=== PATIENT | female | born 1955 | race Caucasian/White ===

== ENCOUNTER 2017-09-01 08:25 | Inpatient (IN) ==
[2017-09-01] MEDS ORDERED: cefOXitin 2,000 MG in Water for inj. (sterile) 20 ML 10 ML IVP ONE (08:43)
[2017-09-01] MEDS ORDERED: Albuterol 2.5 MG/3 ML NEBULIZER IH ONE (08:43)
[2017-09-01] MEDS ORDERED: Plasma-Lyte A (PH 7.4) 1,000 ML IVC SCH (08:45)
[2017-09-01] MEDS ORDERED: Lidocaine -MPF 4% 5 ML AMPUL ONE (08:52)
[2017-09-01] MEDS ORDERED: *HR* Rocuronium Bromide 50 MG/5 ML VIAL ONE ×2 (08:52→11:08)
[2017-09-01] MEDS ORDERED: *HR* FentaNYL (PF) 100 MCG/2 ML VIAL ONE (08:52)
[2017-09-01] MEDS ORDERED: Dexamethasone 4 MG/ML VIAL ONE (08:52)
[2017-09-01] MEDS ORDERED: *HR* Propofol 200 MG/20 ML VIAL IVP ONE (08:52)
[2017-09-01] MEDS ORDERED: Lidocaine -MPF 2% 2 ML VIAL ONE (08:52)
[2017-09-01] MEDS ORDERED: Ondansetron 4 MG/2 ML VIAL ONE (08:52)
[2017-09-01] MEDS ORDERED: *HR* Succinylcholine 200 MG/10 ML VIAL IVP ONE (08:53)
--- NOTE | 2017-09-01 08:54 | Anesthesia Evaluation PreOp ---
Date of Encounter: 09/01/17 Time of Encounter: 08:50 - Past History Planned Operation: lap kimani Cardiac History: HTN, Hyperlipidemia, Arrhythmia (occ. 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 etiology) Other Medical History: GERD Anesthesia History: No Prior Anesthetic Complications, Past Anesthesia Alcohol Use: none Drug use: none Medications and Allergies Amitriptyline [Elavil] 25 mg PO HS 09/01/17 [History] Aspirin 325 mg PO DAILY 09/01/17 [History] Atorvastatin [Lipitor] 40 mg PO HS 09/01/17 [History] Calcium Carbonate/Vitamin D3 [Oyster Shell Calcium-Vit D Tab] 1 tab PO BID 09/01 [History] Cyclobenzaprine [Flexeril] 10 mg PO BID 09/01/17 [History] Ergocalciferol (VITAMIN D2) [Vitamin D2] 50,000 unit PO WE 09/01/17 [History] Isosorbide MONOnitrate (24 HR) [Imdur] 30 mg PO DAILY 09/01/17 [History] Lansoprazole [Prevacid] 30 mg PO DAILY 09/01/17 [History] Quetiapine Fumarate [Seroquel] 200 mg PO HS 09/01/17 [History] Tiotropium [Spiriva] 18 mcg IH 0700 09/01/17 [History] Venlafaxine HCl [Venlafaxine HCl ER] 150 mg PO DAILY 09/01/17 [History] clonazePAM [Klonopin] 1 mg PO BID 09/01/17 [History] 3 Allergy/AdvReac Type Severity Reaction Status Date / Time No Known Allergies Allergy Verified 09/01/17 08:44 - Meds/Allergy Pre-op Review Medications Reviewed: Yes Allergies Reviewed: Yes Beta Blockers on Current Med List: No Anesthesia Results - Imaging EKG: report reviewed (sinus rhythm, LAE) Anesthesia Exam Selected Entries 09/01/17 08:42 Temperature 97.8 F Pulse Rate 93 Respiratory Rate 18 Blood Pressure 160/71 O2 Sat by Pulse Oximetry 95 Weight: 100 kg. NPO (# of Hours): over 8 hours - HEENT Pupil (Motor): Pupils equal Mallampati: II Teeth: Poor dentition (No upper teeth, lowers in poor condition, multiple missing) Denture Type: Upper: Complete Oral Opening: Greater than 3 - DECATING MACHINE OPERATOR LOC: Oriented DECATING MACHINE OPERATOR Motor: Deficit RUE (extensive intention tremor), Deficit LUE, Deficit RLE, Deficit LLE, Deficit Face - Cardiac Rhythm: Regular Murmur: None - Pulmonary Breath Sounds: bilateral Clear Respiratory Effort: Symmetrical Anesthesia Assess/Plan Anesthetic Plan: General Monitoring Plan: Standard Monitors Recovery Plan: PACU (Discussed GA, risks. Agreed to proceed.)
[2017-09-01] MEDS ORDERED: Acetaminophen IV 1,000 MG/100 ML INFUS..BTL IVPB ONE (08:57)
[2017-09-01] MEDS ORDERED: cefOXitin 1,000 MG, 0.9 % Sodium Chloride 1,000 ML IR ONE (09:30)
--- NOTE | 2017-09-01 09:38 | History & Physical Report ---
Date of Encounter: 09/01/17 Time of Encounter: 09:30 24 Hour HP Update - Instructions Instructions: If the History and Physical is less than 30 days old and was completed prior to A.M. admission and or procedure and has NOT been updated on calendar day of procedure please complete this update prior to performing procedure. - Update Patient reports changes in Medical Condition: No Changes in examination, assessment, or condition: No Changes in Medication: No Preop tests/diagnostics Reviewed: Yes Surgery Remains Indicated: Yes Consent for Planned Operative Procedure(s) Verified: Yes - Pre-Operative Checklist Preoperative Checklist Indicated: Yes Prophylactic Antibiotic Ordered: Yes Home Medications Include Beta Jasvir: Yes Beta Jasvir Taken Today (Day of Surgery): Yes Beta Jasvir Taken Yesterday (Day Prior to Surgery): Yes Is VTE Prophylaxis Indicated?: Yes
[2017-09-01] MEDS ORDERED: Isovue-300 50 ML VIAL IVP ONE (09:41)
[2017-09-01] MEDS ORDERED: *HR* Promethazine 25 MG/ML VIAL IVP PRN (09:55)
[2017-09-01] MEDS ORDERED: *HR* HYDROmorphone 2 MG TABLET PO PRN (09:55)
[2017-09-01] MEDS ORDERED: MORPHINE SUL Oral CONC 10 MG/0.5 ML ORAL.SYG SL PRN (09:55)
[2017-09-01] MEDS ORDERED: Ondansetron 4 MG/2 ML VIAL IVP ONE (09:55)
[2017-09-01] MEDS ORDERED: CefOXitin 2,000 MG VIAL ONE (10:44)
[2017-09-01] MEDS ORDERED: Neostigmine Methylsulfate 3 MG/3 ML SYRINGE ONE ×2 (11:33→11:34)
--- NOTE | 2017-09-01 11:50 | Operative Note ---
Date of procedure: 09/01/17 Pre-op diagnosis: Cholelithiasis and biliary colic. Post-op diagnosis: same (Cholelithiasis and biliary colic. Extensive intra- abdominal adhesions. Incisional hernias.) Procedure: #1 attempted laparoscopic cholecystectomy, conversion to open cholecystectomy. #2 lysis of adhesions times 30 minutes. #3 repair of incisional hernias Anesthesia: ALANNAH Surgeon: Anthony Chowdary Was there an certified first assistant present: No Estimated blood loss (cc): 25 Specimen: #1 gallbladder and contents. #2 incisional hernia sac Condition: stable Disposition: PACU Procedure in Detail: After informed consent the patient is taken to the major operating suite placed in the supine position and given adequate general anesthetic. The abdomen was prepped and draped in sterile fashion utilizing ChloraPrep standard draping techniques. Timeout was taken and the patient was identified. I made a vertical midline incision below the umbilicus and visually enter the abdomin. A Wetzel trocar was placed . I insufflated to 15 mmHg pressure CO2. There are extensive small bowel adhesions to the midline and right upper quadrant. There were extensive colon adhesions to the inferior border of the liver. The small bowel appeared to be involved in midline incisional hernias. I was unable to reduce this visually. I did not think that I could proceed safely laparoscopically. Decision was made to convert to open. I opened the previous midline incision. I spent 30 minutes dividing adhesions to incisional hernias in the anterior abdominal wall as well as the inferior border of the liver. Once all the adhesions were divided he was noted that there were no areas of bowel injury or enterotomy. Bookwalter retractor was placed. A variety of blunt and sharp dissection techniques were used to isolate the neck of gallbladder. I placed 2 surgical clips proximally and one surgical clip distally on the cystic artery but it was not divided. I placed a surgical clip on the neck gallbladder. I obtained a cholangiogram. Cholangiogram demonstrated good flow although there was apparent anatomy noted at the bifurcation. This did not affect the dissection. I secured the cystic duct with 2 surgical clips proximally. Cystic duct was divided. Cystic artery was divided. The gallbladder was removed from the gallbladder fossa using electrocautery. Hemostasis was excellent. I irrigated with copious amounts of antibiotic containing solution. Bookwalter retractor was removed. I removed the incisional hernia sacs from the subcutaneous tissue. I dissected the fascia over the entire length of the incision. I performed a primary closure of the fascia with interrupted 0 Nurolon. 14 stitches were used. Skin was closed with interrupted 2-0 Vicryl and the skin with skin clips. I did inject 20 mL of Marcaine in the fascia and skin prior to closure
[2017-09-01] MEDS ORDERED: Albuterol 2.5 MG/3 ML NEBULIZER ONE (12:02)
[2017-09-01] MEDS ORDERED: Albuterol 2.5 MG/3 ML NEBULIZER IH SCH (12:15)
[2017-09-01] MEDS ORDERED: *HR* Metoprolol 5 MG/5 ML VIAL IVP PRN (13:00)
[2017-09-01] MEDS ORDERED: Ondansetron 4 MG/2 ML VIAL IVP PRN (13:00)
[2017-09-01] MEDS: *HR* OxyCODONE/APAP 5/325 TABLET PO PRN ×2 (13:38→22:02)
[2017-09-01] MEDS: 0.9 % Sodium Chloride 1,000 ML IVC SCH (13:41)
[2017-09-01] MEDS ORDERED: Venlafaxine XR (24 HR) 150 MG CAP.ER.24H PO ONE (15:13)
[2017-09-01] MEDS ORDERED: clonazePAM 1 MG TABLET PO ONE (15:15)
[2017-09-01] MEDS: Clindamycin 900 MG/50 ML 900 MG/50 ML IV.SOLN IVPB SCH (16:08)
[2017-09-01] MEDS: *HR* Heparin 5,000 UNIT/ML VIAL SQ SCH (19:02)
[2017-09-01] MEDS: clonazePAM 1 MG TABLET PO SCH (21:49)
[2017-09-02] MEDS: Clindamycin 900 MG/50 ML 900 MG/50 ML IV.SOLN IVPB SCH (02:25)
[2017-09-02] MEDS: 0.9 % Sodium Chloride 1,000 ML IVC SCH ×2 (02:28→14:35)
[2017-09-02] MEDS: *HR* Heparin 5,000 UNIT/ML VIAL SQ SCH ×2 (06:06→18:24)
[2017-09-02 07:29] LABS: Basophils % 0.1 %; Hemoglobin 11.7 g/dL (11.5-15.4); Immature Granulocytes % 0.5 % (0-4); Lymphocytes # 1.1 K/mcL (0.6-4.6); Lymphocytes % 11.9 %; Mean Corpuscular HGB Conc 30.8 g/dL (31.6-35.5); Mean Corpuscular Hemoglobin 25.3 pg (28.0-33.3); Mean Corpuscular Volume 82.1 fL (83.0-100.0); Mean Platelet Volume 9.4 fL (9.4-12.4); Monocytes # 0.6 K/mcL (0.0-1.3); Monocytes % 6.8 %; Neutrophils # 7.1 K/mcL (1.6-8.9); Platelet Count 216 K/mcL (140-400); Red Blood Count 4.63 M/mcL (3.82-4.97); Red Cell Distribution Width 14.3 % (11.5-14.5); Segmented Neutrophils % 80.7 %
[2017-09-02 08:07] LABS: BUN/Creatinine Ratio 10 (6-26); Blood Urea Nitrogen 5 mg/dL (8-23); Calcium 9.2 mg/dL (8.6-10.3); Carbon Dioxide 29 mEq/L (23-29); Chloride 106 mEq/L (98-107); Glucose 116 mg/dL (70-105); Osmolality,Calculated 290 (280-300); Sodium 141 mEq/L (136-145); eGFR For African Americans > 60 (> 60); eGFR For Non-African Americans > 60 (> 60)
[2017-09-02] MEDS ORDERED: Venlafaxine XR (24 HR) 150 MG CAP.ER.24H PO SCH (09:00)
[2017-09-02] MEDS: clonazePAM 1 MG TABLET PO SCH ×2 (09:44→21:08)
[2017-09-02] MEDS: Aspirin 325 MG TABLET PO SCH (09:44)
[2017-09-02] MEDS: Pantoprazole 40 MG VIAL IVP SCH (09:45)
[2017-09-02] MEDS: Metoprolol XL (24 HR) Succ 50 MG TAB.ER.24H PO SCH (09:45)
[2017-09-02] MEDS: Isosorbide MONOnitrate (24 HR) 30 MG TAB.ER.24H PO SCH (09:45)
[2017-09-02] MEDS: OXYCODONE Oral CONC 10 MG/0.5 ML ORAL.SYG SL PRN ×2 (11:14→18:42)
--- NOTE | 2017-09-02 11:39 | General Surgery Progress Note ---
<Deidre Longoria Zari - Last Filed: 09/02/17 11:37> Date of Encounter: 09/02/17 Time of Encounter: 11:30 - Assessment and Plan (1) Cholelithiasis Status: Chronic POD #1 attempted laparoscopic cholecystectomy, conversion to open cholecystectomy; lysis of adhesions times 30 minutes; repair of incisional hernias with Dr. Chowdary XR/XR cholangiogram operative IMPRESSION: Unremarkable intraoperative cholangiogram. Advance to full liquid diet Decrease IV fluids to 60ml/hour Supportive care and pain control The incision care Apply abdominal binder GI prophylaxis Incentive spirometer every 1 hour while awake Add duonebs every 6 hours for active wheezing Ambulate hallways 3 times a day with assistance Qualifiers: Cholelithiasis location: gallbladder Cholecystitis presence: without cholecystitis Biliary obstruction: without biliary obstruction Qualified Code(s): K80.20 - Calculus of gallbladder without cholecystitis without obstruction (2) Biliary dyskinesia Status: Chronic POD #1 attempted laparoscopic cholecystectomy, conversion to open cholecystectomy; lysis of adhesions times 30 minutes; repair of incisional hernias with Dr. Chowdary Advance to full liquid diet Decrease IV fluids to 60ml/hour Supportive care and pain control The incision care Apply abdominal binder GI prophylaxis Incentive spirometer every 1 hour while awake Add duonebs every 6 hours for active wheezing Ambulate hallways 3 times a day with assistance (3) Incisional hernia Status: Chronic POD #1 attempted laparoscopic cholecystectomy, conversion to open cholecystectomy; lysis of adhesions times 30 minutes; repair of incisional hernias with Dr. Chowdary Advance to full liquid diet Decrease IV fluids to 60ml/hour Supportive care and pain control The incision care Apply abdominal binder GI prophylaxis Incentive spirometer every 1 hour while awake Add duonebs every 6 hours for active wheezing Ambulate hallways 3 times a day with assistance Qualifiers: Obstruction and gangrene presence: without obstruction or gangrene Qualified Code(s): K43.2 - Incisional hernia without obstruction or gangrene; K43.91 - Incisional hernia, without obstruction or gangrene (4) Intra-abdominal adhesions Status: Acute POD #1 attempted laparoscopic cholecystectomy, conversion to open cholecystectomy; lysis of adhesions times 30 minutes; repair of incisional hernias with Dr. Chowdary Advance to full liquid diet Decrease IV fluids to 60ml/hour Supportive care and pain control The incision care Apply abdominal binder GI prophylaxis Incentive spirometer every 1 hour while awake Add duonebs every 6 hours for active wheezing Ambulate hallways 3 times a day with assistance (5) Obesity (BMI 30.0-34.9) Status: Chronic (6) GERD (gastroesophageal reflux disease) Status: Chronic GI prophylaxis daily Qualifiers: Esophagitis presence: esophagitis presence not specified Qualified Code(s) : K21.9 - Gastro-esophageal reflux disease without esophagitis (7) DVT prophylaxis Status: Acute Heparin 5000 units subcutaneous twice daily for DVT prophylaxis EPCDs to bilateral lower shorties for DVT prophylaxis Ambulate hallways 3 times a day with assistance Subjective Patient reports: no new complaints, still having pain (post-operative pain), tolerating liquids well, voiding w/o difficulty, no flatus, no bowel movement, afebrile Objective Vital Signs - Last 8 Hours Temp Pulse Resp BP Pulse Ox 09/02/17 07:47 97.2 F L 78 16 106/67 97 Intake and Output 09/01/17 09/02/17 09/02/17 23:59 07:59 15:59 Intake Total 650 / 650 1120 / 1120 Output Total 2650 / 2650 900 / 900 Balance -1999 / -1999 220 / 220 Intake: IV Fluids 50 / 50 1000 / 1000 0.9 % Sodium Chloride 1,000 ML 1000 / 1000 @ 75 mls/hr IVC .[id number] [facility] Rx #:[id number] Cleocin Premix 900 MG/50 ML 900 50 / 50 mg In 50 ml @ 50 mls/hr IVPB Q8HR [facility] Rx#:[id number] Oral 600 / 600 120 / 120 Output: Urine 2650 / 2650 900 / 900 Other: Meal Dinner Percent of Meal Consumed 100% Weight 100.199 kg Patient Weight 09/02/17 23:59 Weight 100.199 kg - General physical appearance well developed, well nourished, no distress, moderate pain - Eyes normal ocular movement - ENT normal mucosa, atraumatic, normocephalic - Neck Neck exam: trachea midline - Respiratory normal respiratory effort wheezing: bilateral - Cardiovascular Cardiovascular exam: Present: RRR - Abdomen Abdomen: Present: bowel sounds present (hypoactive), soft, tender (Expected postoperative tenderness) - Incision Incision: Present: clean and dry, intact - Integumentary no rash, no growths, no abnormal pigmentation - Neurologic CN 2-12 grossly intact - Psychiatric oriented to time, oriented to person, oriented to place, speech is normal, memory intact - Labs 09/02/17 05:44 09/02/17 05:44 Diabetes panel 09/02/17 Range/Units 05:44 Sodium 141 (136-145) mEq/L Potassium 4.0 (3.5-5.1) mEq/L Chloride 106 (98-107) mEq/L Carbon Dioxide 29 (23-29) mEq/L BUN 5 L (8-23) mg/dL Creatinine 0.48 L (0.60-1.20) mg/dL Glucose 116 H (70-105) mg/dL Calcium 9.2 (8.6-10.3) mg/dL Calcium panel 09/02/17 Range/Units 05:44 Calcium 9.2 (8.6-10.3) mg/dL Pituitary panel 09/02/17 Range/Units 05:44 Sodium 141 (136-145) mEq/L Potassium 4.0 (3.5-5.1) mEq/L Chloride 106 (98-107) mEq/L Carbon Dioxide 29 (23-29) mEq/L BUN 5 L (8-23) mg/dL Creatinine 0.48 L (0.60-1.20) mg/dL Glucose 116 H (70-105) mg/dL Calcium 9.2 (8.6-10.3) mg/dL Adrenal panel 09/02/17 Range/Units 05:44 Sodium 141 (136-145) mEq/L Potassium 4.0 (3.5-5.1) mEq/L Chloride 106 (98-107) mEq/L Carbon Dioxide 29 (23-29) mEq/L BUN 5 L (8-23) mg/dL Creatinine 0.48 L (0.60-1.20) mg/dL Glucose 116 H (70-105) mg/dL Calcium 9.2 (8.6-10.3) mg/dL - VTE Documentation of Mechanical Device: Intermittent pneumatic compression device Consult Discharge Plan - Plan Instructions: Oxycodone/Acetaminophen (By mouth), Laxative, Stool Softeners ( By mouth), Open Cholecystectomy (DC), Acute Wound Care (DC) Additional Instructions: Pain Narcotics are prescribed. 1-2 tabs every 6 hours. Please take with meals. DO NOT drive while taking narcotics. Activity As tolerated. However, I encourage you to limit heaving lifting and strenuous activity until evaluated in clinic. Diet As tolerated. Bowel Regimen As long as you are taking narcotics, please take the stool softner daily. Warnings If you experience significant redness around the incision or drainage from the incision that is purulent or malodorous, or you experience fevers, chills, or food intolerance (including nausea, vomiting, abdominal pain or distension), jaundice or yellow skin, eyes, tongue/cheek, or any symptoms you feel warrant evaluation, please call the office. If unable to reach the office, please go to nearest urgent care center or emergency department Referrals: Anthony Chowdary MD [Partnered Physician] - Mika Harris MD [Primary Care Provider] - Prescriptions: OxyCODONE/APAP 5/325 [Percocet 5/325 MG] 1 each PO Q6HR PRN 7 Days #28 tablet PRN Reason: Pain (1-5) Docusate [Colace] 100 mg PO BID PRN 10 Days #20 capsule PRN Reason: Constipation - Attending Attestation For this encounter, I have reviewed the AUTOMOTIVE PAINTER HELPER or PA documentation, treatment plan, and medical decision making; and I have had face to face time with this patient. <Anthony Chowdary - Last Filed: 09/05/17 08:52> Date of Encounter: 09/02/17 Objective - Labs 09/02/17 05:44 09/02/17 05:44 - Attending Attestation The patient is seen and evaluated on morning rounds. She is status post open cholecystectomy. Her pain control is excellent. She is tolerating diet. I am very pleased with her overall clinical course. We will continue to support her until her bowel function increases and then we can proceed with discharge. Anthony Chowdary MD FACS
[2017-09-02] MEDS: Ipratropium/Albuterol Neb 3 ML IH SCH ×3 (13:37→22:56)
[2017-09-02] MEDS: Venlafaxine XR (24 HR) 150 MG CAP.ER.24H PO SCH (14:44)
[2017-09-03] MEDS: OXYCODONE Oral CONC 10 MG/0.5 ML ORAL.SYG SL PRN (00:18)
[2017-09-03] MEDS: Ipratropium/Albuterol Neb 3 ML IH SCH ×4 (03:16→21:14)
[2017-09-03] MEDS: *HR* Heparin 5,000 UNIT/ML VIAL SQ SCH ×2 (06:42→16:34)
[2017-09-03] MEDS: 0.9 % Sodium Chloride 1,000 ML IVC SCH ×2 (06:49→21:08)
[2017-09-03] MEDS: Pantoprazole 40 MG VIAL IVP SCH (07:55)
[2017-09-03] MEDS: Metoprolol XL (24 HR) Succ 50 MG TAB.ER.24H PO SCH (07:55)
[2017-09-03] MEDS: Aspirin 325 MG TABLET PO SCH (07:55)
[2017-09-03] MEDS: Isosorbide MONOnitrate (24 HR) 30 MG TAB.ER.24H PO SCH (07:55)
[2017-09-03] MEDS: clonazePAM 1 MG TABLET PO SCH ×2 (07:56→21:06)
[2017-09-03] MEDS: *HR* OxyCODONE/APAP 5/325 TABLET PO PRN ×3 (08:10→22:39)
--- NOTE | 2017-09-03 12:49 | General Surgery Progress Note ---
Date of Encounter: 09/03/17 Time of Encounter: 12:47 - Assessment and Plan (1) Cholelithiasis Current Visit: Yes Status: Chronic POD#2 s/p lap conv to open cholecystectomy with primary repair of incisional hernia; tolerating FLD; no bowel function; patient wishes to stay with current diet activity as tolerated cont current pain regimen SLIV when tolerating adequate PO await return of bowel function; IS: 10 breaths an hr while awake abdominal binder as needed Qualifiers: Cholelithiasis location: gallbladder Cholecystitis presence: without cholecystitis Biliary obstruction: without biliary obstruction Qualified Code(s): K80.20 - Calculus of gallbladder without cholecystitis without obstruction (2) Incisional hernia Current Visit: Yes Status: Chronic Qualifiers: Obstruction and gangrene presence: without obstruction or gangrene Qualified Code(s): K43.2 - Incisional hernia without obstruction or gangrene; K43.91 - Incisional hernia, without obstruction or gangrene Subjective Patient reports: no new complaints, feels better, still having pain, pain is less, tolerating liquids well, no flatus, no bowel movement, afebrile Objective Vital Signs - Last 8 Hours Temp Pulse Resp BP Pulse Ox 09/03/17 11:23 97.9 F 75 16 93/48 95 09/03/17 07:59 98.1 F 96 16 119/71 91 Intake and Output 09/02/17 09/03/17 09/03/17 23:59 07:59 15:59 Intake Total 1000 / 1000 Output Total 1949 / 1950 400 / 400 Balance -1949 / -1949 600 / 600 Intake: IV Fluids 1000 / 1000 0.9 % Sodium Chloride 1,000 ML 1000 / 1000 @ 60 mls/hr IVC .[id number] [facility] Rx #:[id number] Output: Urine 1949 1950 400 / 400 Other: Meal Dinner Percent of Meal Consumed 100% Weight 100.561 kg Patient Weight 09/03/17 23:59 Weight 100.561 kg - General physical appearance well developed, no distress - Eyes other (no scleral icterus) - ENT normocephalic - Neck Neck exam: no lymphadectomy - Respiratory normal expansion, normal respiratory effort - Cardiovascular Cardiovascular exam: Present: RRR - Abdomen Abdomen: Present: soft, tender (appropriately tender), surgical scars - Incision Incision: Present: clean and dry, intact - Integumentary no rash - Psychiatric oriented to time, oriented to person, oriented to place - Labs 09/02/17 05:44 09/02/17 05:44 - VTE Documentation of Mechanical Device: Intermittent pneumatic compression device Consult Discharge Plan - Plan Referrals: Mika Harris MD [Primary Care Provider] -
[2017-09-03] MEDS: Venlafaxine XR (24 HR) 150 MG CAP.ER.24H PO SCH (16:34)
[2017-09-04] MEDS: Ipratropium/Albuterol Neb 3 ML IH SCH ×2 (03:18→07:29)
[2017-09-04] MEDS: *HR* Heparin 5,000 UNIT/ML VIAL SQ SCH (05:28)
[2017-09-04] MEDS: *HR* OxyCODONE/APAP 5/325 TABLET PO PRN (05:28)
[2017-09-04] MEDS: Metoprolol XL (24 HR) Succ 50 MG TAB.ER.24H PO SCH (11:45)
[2017-09-04] MEDS: Aspirin 325 MG TABLET PO SCH (11:45)
[2017-09-04] MEDS: clonazePAM 1 MG TABLET PO SCH (11:45)
[2017-09-04] MEDS: Isosorbide MONOnitrate (24 HR) 30 MG TAB.ER.24H PO SCH (11:45)
[2017-09-04] MEDS: Pantoprazole 40 MG VIAL IVP SCH (11:45)
[2017-09-04 11:49] VITALS: BP 102/49
--- NOTE | 2017-09-04 11:51 | General Surgery Progress Note ---
Date of Encounter: 09/04/17 Time of Encounter: 11:49 - Assessment and Plan (1) Cholelithiasis Current Visit: Yes Status: Chronic POD#3 s/p lap conv to open cholecystectomy with primary repair of incisional hernia; no bowel function; patient wishes to stay with current diet activity as tolerated cont current pain regimen d/c IVF IS: 10 breaths an hr while awake abdominal binder as needed patient will likely need another day for continued pain control and ensure she continues to tolerate diet Qualifiers: Cholelithiasis location: gallbladder Cholecystitis presence: without cholecystitis Biliary obstruction: without biliary obstruction Qualified Code(s): K80.20 - Calculus of gallbladder without cholecystitis without obstruction (2) Incisional hernia Current Visit: Yes Status: Chronic Qualifiers: Obstruction and gangrene presence: without obstruction or gangrene Qualified Code(s): K43.2 - Incisional hernia without obstruction or gangrene; K43.91 - Incisional hernia, without obstruction or gangrene Subjective Patient reports: no new complaints, feels better, still having pain, pain is less, tolerating a regular diet, afebrile Objective Vital Signs - Last 8 Hours Temp Pulse Resp BP Pulse Ox 09/04/17 11:47 98.5 F 87 16 102/49 96 09/04/17 06:57 98.3 F 85 16 111/57 97 09/04/17 03:54 97.6 F 94 19 160/72 93 Intake and Output 09/03/17 09/04/17 09/04/17 23:59 07:59 15:59 Intake Total 1940 / 1940 600 / 600 Output Total 1350 / 1350 750 / 750 Balance 590 / 590 -150 / -150 Intake: IV Fluids 950 / 950 0.9 % Sodium Chloride 1,000 ML 950 / 950 @ 60 mls/hr IVC .[id number] [facility] Rx #:[id number] Oral 990 / 990 600 / 600 Output: Urine 1350 / 1350 750 / 750 Other: Meal Dinner Percent of Meal Consumed 80% # Voids 2 1 - General physical appearance no distress - Respiratory normal expansion, normal respiratory effort - Cardiovascular Cardiovascular exam: Present: RRR - Abdomen Abdomen: Present: soft, tender (appropriately tender, but controlled) - Incision Incision: Present: clean and dry, intact - Neurologic CN 2-12 grossly intact - Labs 09/02/17 05:44 09/02/17 05:44 - VTE Documentation of Mechanical Device: Intermittent pneumatic compression device Consult Discharge Plan - Plan Referrals: Mika Harris MD [Primary Care Provider] -
--- NOTE | 2017-09-04 12:09 | Discharge Summary ---
Date of Encounter: 09/04/17 Time of Encounter: 12:06 - Discharge Diagnosis (1) Cholelithiasis Priority: Primary Status: Chronic Comments: s/p lap converted to open cholecystectomy with primary closure of ventral hernia ; tolerating diet; pain controlled; voiding on her own; having bowel function; patient is appropriate for discharge today; Originally the plan was to keep her another day, but she is having bowel function and feels her pain is adequately controlled; Qualifiers: Cholelithiasis location: gallbladder Cholecystitis presence: without cholecystitis Biliary obstruction: without biliary obstruction Qualified Code(s): K80.20 - Calculus of gallbladder without cholecystitis without obstruction (2) Incisional hernia Priority: Primary Status: Chronic Comments: see above Qualifiers: Obstruction and gangrene presence: without obstruction or gangrene Qualified Code(s): K43.2 - Incisional hernia without obstruction or gangrene; K43.91 - Incisional hernia, without obstruction or gangrene - Discharge Medications Prescriptions: OxyCODONE/APAP 5/325 [Percocet 5/325 MG] 1 each PO Q6HR PRN 7 Days #28 tablet PRN Reason: Pain (1-5) Docusate [Colace] 100 mg PO BID PRN 10 Days #20 capsule PRN Reason: Constipation Home Medications: Amitriptyline [Elavil] 25 mg PO HS 09/01/17 [History] Aspirin 325 mg PO DAILY 09/01/17 [History] Atorvastatin [Lipitor] 40 mg PO DAILY 09/01/17 [History] Calcium Carbonate/Vitamin D3 [Oyster Shell Calcium-Vit D Tab] 1 tab PO BID 09/01 [History] Cyclobenzaprine [Flexeril] 10 mg PO BID 09/01/17 [History] Ergocalciferol (VITAMIN D2) [Vitamin D2] 50,000 unit PO WE 09/01/17 [History] Isosorbide MONOnitrate (24 HR) [Imdur] 30 mg PO DAILY 09/01/17 [History] Lansoprazole [Prevacid] 30 mg PO DAILY 09/01/17 [History] Metoprolol Succinate [Toprol Xl] 50 mg PO DAILY 09/01/17 [History] Quetiapine Fumarate [Seroquel] 200 mg PO HS 09/01/17 [History] Tiotropium [Spiriva] 18 mcg IH 0700 09/01/17 [History] Venlafaxine HCl [Venlafaxine HCl ER] 150 mg PO DAILY 09/01/17 [History] clonazePAM [Klonopin] 1 mg PO BID 09/01/17 [History] Docusate [Colace] 100 mg PO BID PRN 10 Days #20 capsule 09/04/17 [Rx] OxyCODONE/APAP 5/325 [Percocet 5/325 MG] 1 each PO Q6HR PRN 7 Days #28 tablet [Rx] Allergies/Adverse Reactions: 3 Allergy/AdvReac Type Severity Reaction Status Date / Time No Known Allergies Allergy Verified 09/01/17 08:44 General Surgery Exam Initial Vital Signs Temp Pulse Resp BP Pulse Ox 97.8 F 93 18 160/71 95 09/01/17 08:42 09/01/17 08:42 09/01/17 08:42 09/01/17 08:42 09/01/17 08:42 - General physical appearance no distress - Respiratory normal expansion, normal respiratory effort - Cardiovascular Cardiovascular exam: Present: RRR - Abdomen Abdomen general surgery: Present: soft, tender (appropriately tender) - Integumentary Integumentary general surgery: Present: warm and dry - Neurologic Present: CN 2-12 grossly intact - Psychiatric Psychiatric general surgery: Present: A&Ox3 Date of admission: 09/01/17 16:12 Primary care physician: Mika Harris MD Consults: 09/02/17 17:20 Consult to Invasive Line Access Team [CONS] Routine Reason for Consult: Limited access Line Type: EPIV Discharging clinician: Duncan Colbert Anticipated date of discharge: 09/04/17 - Patient Status Disposition: Home, Self-Care Condition: Good Functional capacity at discharge: independent ambulation Overall status at discharge: patient is progressing back to baseline - Discharge Instructions Follow Up With: Miak Harris MD [Primary Care Provider] - Anthony Chowdary MD [Partnered Physician] - Additional Instructions: Pain Narcotics are prescribed. 1-2 tabs every 6 hours. Please take with meals. DO NOT drive while taking narcotics. Activity As tolerated. However, I encourage you to limit heaving lifting and strenuous activity until evaluated in clinic. Diet As tolerated. Bowel Regimen As long as you are taking narcotics, please take the stool softner daily. Warnings If you experience significant redness around the incision or drainage from the incision that is purulent or malodorous, or you experience fevers, chills, or food intolerance (including nausea, vomiting, abdominal pain or distension), jaundice or yellow skin, eyes, tongue/cheek, or any symptoms you feel warrant evaluation, please call the office. If unable to reach the office, please go to nearest urgent care center or emergency department - Diet and Activity Activity: resume usual activities as tolerated Diet: advance to your usual diet - Hospital Course Hospital course: Ms. Valentino is a 62 year old female - Time Spent with Patient Total time spent providing and/or coordinating discharge services: Greater than 30 minutes - Impressions ITS Impressions Cholangiogram,Operative 09/01/17 09:45 IMPRESSION: Unremarkable intraoperative cholangiogram. D/ / 09/01/2017 11:31:29 Debi Sears MD / han Interpreting Provider: Debi Sears MD
== END 2017-09-04 15:12 | disposition home or self-care (01) | DRG 263 ==
LOC: SAMDAY 08:25 → 3BNU 12:18
PROVIDERS: ADMIT Surgery; ATTEND Surgery

== ENCOUNTER 2019-05-16 20:04 | Inpatient (IN) ==
[2019-05-16] MEDS ORDERED: Isovue-370 500 ML BOTTLE IVP ONE (20:59)
[2019-05-16] MEDS ORDERED: Morphine Sulfate 2 MG/ML SYRINGE IVP ONE (21:01)
[2019-05-16] MEDS ORDERED: 0.9 % Sodium Chloride 1,000 ML IVC ONE ×2 (21:01→23:12)
[2019-05-16 21:44] LABS: Basophils % 0.2 %; Hematocrit 46.4 % (35.3-44.9); Hemoglobin 14.5 g/dL (11.5-15.4); Immature Granulocytes % 0.4 % (0-4); Lymphocytes # 1.4 K/mcL (0.6-4.6); Lymphocytes % 8.5 %; Mean Corpuscular HGB Conc 31.3 g/dL (31.6-35.5); Mean Corpuscular Hemoglobin 25.5 pg (28.0-33.3); Mean Corpuscular Volume 81.7 fL (83.0-100.0); Mean Platelet Volume 8.8 fL (9.4-12.4); Monocytes % 6.4 %; Neutrophils # 13.6 K/mcL (1.6-8.9); Platelet Count 405 K/mcL (140-400); Red Blood Count 5.68 M/mcL (3.82-4.97); Red Cell Distribution Width 14.5 % (11.5-14.5); Segmented Neutrophils % 84.5 %; White Blood Count 16.1 K/mcL (4.3-11.1)
[2019-05-16 22:03] LABS: Alanine Aminotransferase 24 Units/L (7-52); Albumin/Globulin Ratio 1.3 (1.1-2.2); Alkaline Phosphatase 65 Units/L (34-104); Aspartate Amino Transferase 91 Units/L (13-39); BUN/Creatinine Ratio 26 (6-26); Bilirubin,Total 1.2 mg/dL (0.3-1.0); Blood Urea Nitrogen 18 mg/dL (8-23); Calcium 9.2 mg/dL (8.6-10.3); Carbon Dioxide 26 mEq/L (23-29); Chloride 97 mEq/L (98-107); Glucose 132 mg/dL (70-105); Lipase 53 Units/L (11-82); Osmolality,Calculated 280 (280-300); Potassium 4.1 mEq/L (3.5-5.1); Sodium 133 mEq/L (136-145); eGFR For African Americans > 60 (> 60); eGFR For Non-African Americans > 60 (> 60)
[2019-05-16 22:18] LABS: Reactive Lymphocytes Present (Not Present)
[2019-05-16] MEDS ORDERED: Piperacillin/Tazobactam 3.375 GM in Water for inj. (sterile) 20 ML IVP ONE (23:12)
[2019-05-16 23:44] LABS: Bilirubin,Urine Negative (Negative); Blood,Urine Negative (Negative); Clarity,Urine Clear (Clear); Color,Urine Yellow (Yellow); Glucose,Urine (UA) Normal (Normal); Ketones,Urine Negative (Negative); Leukocyte Esterase,Urine Negative (Negative); Nitrite,Urine Negative (Negative); PH,Urine 5.5 pH Units (5.0-8.0); Protein,Urine Trace mg/dL (Neg-Trace); Specific Gravity,Urine > 1.030 (1.010-1.025); Urobilinogen,Urine Normal (Normal)
[2019-05-17] MEDS ORDERED: levoFLOXacin 750 MG/150 ML 750 MG/150 ML BAG IVPB ONE (00:07)
[2019-05-17] MEDS ORDERED: Naloxone 0.4 MG/ML INJ IVP PRN ×2 (02:09→13:39)
[2019-05-17] MEDS ORDERED: MethylPREDNISolone 40 MG/ML VIAL IVP ONE (02:12)
[2019-05-17] MEDS ORDERED: 0.9 % Sodium Chloride 1,000 ML IVC SCH (02:15)
[2019-05-17 03:07] LABS: INR 1.5; Prothrombin Time 17.6 Seconds (9.4-12.1)
[2019-05-17 03:23] LABS: Basophils % 0.2 %; Hemoglobin 13.1 g/dL (11.5-15.4); Immature Granulocytes % 0.4 % (0-4); Lymphocytes % 7.2 %; Mean Corpuscular Hemoglobin 25.5 pg (28.0-33.3); Mean Corpuscular Volume 79.9 fL (83.0-100.0); Mean Platelet Volume 9.4 fL (9.4-12.4); Monocytes % 7.2 %; Neutrophils # 11.4 K/mcL (1.6-8.9); Platelet Count 307 K/mcL (140-400); Red Blood Count 5.13 M/mcL (3.82-4.97); Red Cell Distribution Width 14.5 % (11.5-14.5); White Blood Count 13.4 K/mcL (4.3-11.1)
[2019-05-17 03:32] LABS: Alanine Aminotransferase 21 Units/L (7-52); Albumin 3.5 g/dL (3.5-5.7); Albumin/Globulin Ratio 1.4 (1.1-2.2); Alkaline Phosphatase 61 Units/L (34-104); Aspartate Amino Transferase 85 Units/L (13-39); BUN/Creatinine Ratio 26 (6-26); Bilirubin,Total 1.2 mg/dL (0.3-1.0); Blood Urea Nitrogen 14 mg/dL (8-23); Calcium 8.6 mg/dL (8.6-10.3); Carbon Dioxide 28 mEq/L (23-29); Chloride 99 mEq/L (98-107); Chol/HDL Ratio 4.3 (0-4.9); Cholesterol 103 mg/dL (< 200); Globulin 2.5 g/dL (2.4-3.5); Glucose 122 mg/dL (70-105); HDL Cholesterol 24 mg/dL (40-59); LDL Cholesterol,Calculated 48 mg/dL (0-99); Magnesium 1.8 mg/dL (1.6-2.6); Osmolality,Calculated 280 (280-300); Phosphorous 2.3 mg/dL (2.7-4.5); Sodium 134 mEq/L (136-145); Triglycerides 157 mg/dL (< 150); eGFR For African Americans > 60 (> 60); eGFR For Non-African Americans > 60 (> 60)
[2019-05-17] MEDS: Ipratropium/Albuterol Neb 3 ML IH SCH ×4 (04:09→22:12)
[2019-05-17 04:15] LABS: Platelet Estimate Normal (Normal)
[2019-05-17] MEDS ORDERED: *HR* OxyCODONE/APAP 5/325 TABLET PO SCH (06:00)
[2019-05-17] MEDS ORDERED: MetroNIDAZOLE 500 MG/100 ML 500 MG/100 ML BAG IVPB SCH (08:00)
[2019-05-17] MEDS ORDERED: Aminoglycoside Consult 1 EACH MC ONE (08:00)
[2019-05-17] MEDS ORDERED: predniSONE 20 MG TABLET PO SCH (09:00)
[2019-05-17] MEDS: Nicotine 14 MG PATCH.TD24 TD SCH (09:06)
[2019-05-17] MEDS: Aspirin 325 MG TABLET PO SCH (09:06)
[2019-05-17 12:07] LABS: Bilirubin,Urine Negative (Negative); Blood,Urine Trace (Negative); Clarity,Urine Clear (Clear); Color,Urine Yellow (Yellow); Glucose,Urine (UA) Normal (Normal); Ketones,Urine Trace mg/dL (Negative); Leukocyte Esterase,Urine Negative (Negative); Nitrite,Urine Negative (Negative); Protein,Urine Negative (Neg-Trace); Specific Gravity,Urine 1.008 (1.010-1.025); Urobilinogen,Urine Normal (Normal)
[2019-05-17 12:08] LABS: Bacteria,Urine None Seen per hpf (None-Few); Hyaline Casts,Urine None Seen per lpf (None-Few); RBC,Urine 0-3 per hpf (0-3); Squamous Epithelial Cell,Urine Many per lpf (None-Few); WBC,Urine 0-3 per hpf (0-3)
[2019-05-17] MEDS ORDERED: traMADol 50 MG TABLET PO PRN (13:39)
[2019-05-17] MEDS ORDERED: Acetaminophen 325 MG TABLET PO PRN (13:39)
[2019-05-17] MEDS ORDERED: *HR* HYDROcodone/Acet 5/325 mg TABLET PO PRN (13:39)
[2019-05-17] MEDS ORDERED: Isosorbide MONOnitrate (24 HR) 30 MG TAB.ER.24H PO SCH (18:00)
[2019-05-17] MEDS ORDERED: Venlafaxine XR (24 HR) 150 MG CAP.ER.24H PO SCH (18:00)
[2019-05-17] MEDS ORDERED: Metoprolol XL (24 HR) Succ 50 MG TAB.ER.24H PO SCH (18:00)
[2019-05-17] MEDS ORDERED: Venlafaxine XR (24 HR) 75 MG CAP.ER.24H PO SCH (18:00)
[2019-05-17] MEDS ORDERED: NON-FORMULARY MEDICATION 1 EACH EACH (Quetiapine Fumarate [Seroquel] 400 MG) PO SCH (21:00)
[2019-05-17] MEDS ORDERED: levoFLOXacin 750 MG/150 ML 750 MG/150 ML BAG IVPB SCH (23:00)
[2019-05-18] MEDS: Ipratropium/Albuterol Neb 3 ML IH SCH ×2 (03:41→09:41)
[2019-05-18 05:32] LABS: Basophils % 0.2 %; Eosinophils % 0.1 %; Hematocrit 36.1 % (35.3-44.9); Lymphocytes # 1.2 K/mcL (0.6-4.6); Lymphocytes % 10.7 %; Mean Corpuscular HGB Conc 31.3 g/dL (31.6-35.5); Mean Corpuscular Hemoglobin 25.5 pg (28.0-33.3); Mean Corpuscular Volume 81.5 fL (83.0-100.0); Mean Platelet Volume 9.4 fL (9.4-12.4); Monocytes # 0.8 K/mcL (0.0-1.3); Monocytes % 7.2 %; Neutrophils # 9.2 K/mcL (1.6-8.9); Platelet Count 273 K/mcL (140-400); Red Blood Count 4.43 M/mcL (3.82-4.97); Red Cell Distribution Width 14.8 % (11.5-14.5); Segmented Neutrophils % 80.8 %; White Blood Count 11.4 K/mcL (4.3-11.1)
[2019-05-18 05:42] LABS: Hemoglobin 11.3 g/dL (11.5-15.4)
[2019-05-18 05:49] LABS: BUN/Creatinine Ratio 16 (6-26); Blood Urea Nitrogen 8 mg/dL (8-23); Calcium 9.1 mg/dL (8.6-10.3); Carbon Dioxide 32 mEq/L (23-29); Chloride 99 mEq/L (98-107); Glucose 96 mg/dL (70-105); Osmolality,Calculated 286 (280-300); Potassium 3.1 mEq/L (3.5-5.1); Sodium 139 mEq/L (136-145); eGFR For African Americans > 60 (> 60); eGFR For Non-African Americans > 60 (> 60)
[2019-05-18 06:22] VITALS: BP 155/74
[2019-05-18 08:00] LABS: Hematocrit 37.4 % (35.3-44.9); Hemoglobin 11.6 g/dL (11.5-15.4)
[2019-05-18] MEDS: Aspirin 325 MG TABLET PO SCH (09:18)
[2019-05-18] MEDS: Nicotine 14 MG PATCH.TD24 TD SCH (09:18)
[2019-05-18] MEDS ORDERED: Tiotropium 18 MCG inhalation IH SCH (10:00)
== END 2019-05-18 12:04 | disposition home health service (06) | DRG 139 ==
LOC: 3ANU 20:04 → EMEROOARM 20:04 → SUATTDRO 05-17 00:31 → 3ANU 05-17 01:00
PROVIDERS: ADMIT Family Medicine; ATTEND Internal Medicine

== ENCOUNTER 2021-09-29 20:47 | Observation (INO) ==
[2021-09-29 21:38] LABS: Basophils # 0.1 K/mcL (0.0-0.2); Basophils % 0.7 %; Eosinophils # 0.1 K/mcL (0.0-0.6); Eosinophils % 0.9 %; Hematocrit 42.2 % (35.3-44.9); Hemoglobin 13.6 g/dL (11.5-15.4); Immature Granulocytes % 0.2 % (0-4); Lymphocytes # 2.1 K/mcL (0.6-4.6); Mean Corpuscular HGB Conc 32.2 g/dL (31.6-35.5); Mean Corpuscular Hemoglobin 26.5 pg (28.0-33.3); Mean Corpuscular Volume 82.1 fL (83.0-100.0); Mean Platelet Volume 8.7 fL (9.4-12.4); Monocytes # 0.9 K/mcL (0.0-1.3); Monocytes % 9.7 %; Platelet Count 265 K/mcL (140-400); Red Blood Count 5.14 M/mcL (3.82-4.97); Segmented Neutrophils % 65.5 %; White Blood Count 9.2 K/mcL (4.3-11.1)
[2021-09-29 21:42] LABS: Bilirubin,Urine Negative (Negative); Blood,Urine Trace (Negative); Clarity,Urine Clear (Clear); Color,Urine Light-Yellow (Yellow); Glucose,Urine (UA) Normal (Normal); Ketones,Urine Negative (Negative); Leukocyte Esterase,Urine Trace (Negative); Mucus,Urine Few per lpf (None-Few); Nitrite,Urine Negative (Negative); Protein,Urine 30 mg/dL (Neg-Trace); RBC,Urine 0-3 per hpf (0-3); Specific Gravity,Urine 1.011 (1.010-1.025); Squamous Epithelial Cell,Urine Few per hpf (None-Few); Urobilinogen,Urine Normal (Normal)
[2021-09-29] MEDS ORDERED: Ringers Solution, Lactated 1,000 ML IVC ONE (21:58)
[2021-09-29 22:03] LABS: BUN/Creatinine Ratio 18 (6-26); Blood Urea Nitrogen 13 mg/dL (8-23); Carbon Dioxide 28 mEq/L (23-29); Chloride 98 mEq/L (98-107); Glucose 100 mg/dL (70-105); Osmolality,Calculated 286 (280-300); Potassium 3.3 mEq/L (3.5-5.1); Sodium 138 mEq/L (136-145); eGFR For African Americans > 60 (> 60); eGFR For Non-African Americans > 60 (> 60)
[2021-09-29 22:07] LABS: Troponin I 0.24 ng/mL (< 0.04)
[2021-09-29] MEDS ORDERED: Potassium Effervescent 25 MEQ TABLET.EFF PO ONE (22:16)
[2021-09-29 22:27] LABS: Amphetamine Screen,Urine Negative ng/mL (Cutoff=1000); Barbiturate Screen,Urine Negative ng/mL (Cutoff=200); Benzodiazepines Screen,Urine Negative ng/mL (Cutoff=200); Cannabinoid Screen,Urine Negative ng/mL (Cutoff = 50); Cocaine Screen,Urine Negative ng/mL (Cutoff= 300); Opiate Screen,Urine Negative ng/mL (Cutoff=300); Phencyclidine Screen,Urine Negative ng/mL (Cutoff=25)
[2021-09-29] MEDS ORDERED: cefTRIAXone 2,000 MG in 0.9 % Sodium Chloride 20 ML IVP ONE (22:30)
[2021-09-29] MEDS ORDERED: Aspirin 325 MG TABLET PO ONE (22:30)
[2021-09-29 22:56] LABS: Alanine Aminotransferase 14 Units/L (7-52); Albumin 4.8 g/dL (3.5-5.7); Albumin/Globulin Ratio 1.7 (1.1-2.2); Alkaline Phosphatase 70 Units/L (34-104); Aspartate Amino Transferase 34 Units/L (13-39); Bilirubin,Direct 0.2 mg/dL (0.0-0.2); Bilirubin,Total 1.2 mg/dL (0.3-1.0); Globulin 2.8 g/dL (2.4-3.5); Total Protein 7.6 g/dL (6.4-8.9)
[2021-09-29 23:26] LABS: Influenza A PCR Negative (Negative); Influenza B PCR Negative (Negative); Resp. Syncytial Virus PCR Negative (Negative)
[2021-09-29 23:27] LABS: SARS-CoV-2 by PCR (In House) Negative (Negative)
[2021-09-30] MEDS ORDERED: Ondansetron 4 MG/2 ML VIAL IVP PRN (00:45)
[2021-09-30] MEDS ORDERED: Melatonin 3 MG TABLET PO PRN (00:45)
[2021-09-30] MEDS ORDERED: Naloxone 0.4 MG/ML INJ IVP PRN (00:45)
[2021-09-30 00:56] LABS: Heparin anti-factor XA UFH < 0.04 IU/mL (0.30-0.70); INR 1.2; Prothrombin Time 13.7 Seconds (9.4-12.1)
[2021-09-30 00:58] LABS: Activated Partial Thrombo Time 30.3 Seconds (26.0-36.0)
[2021-09-30] MEDS ORDERED: *HR* Heparin 5,000 UNIT/ML VIAL IVP PRN (01:41)
[2021-09-30] MEDS ORDERED: *HR* Heparin 5,000 UNIT/ML VIAL IVP ONE (01:41)
[2021-09-30] MEDS: Heparin 25,000UNIT/250ML 1/2NS 25,000 UNIT/250 ML IV.SOLN IVC SCH (02:38)
[2021-09-30] MEDS ORDERED: Perflutren Lipid Microsphere 1.3 ML in 0.9 % Sodium Chloride 8.7 ML IVP PRN (06:53)
[2021-09-30] MEDS ORDERED: Metoprolol XL (24 HR) Succ 50 MG TAB.ER.24H PO SCH (09:00)
[2021-09-30 09:23] LABS: Basophils # 0.1 K/mcL (0.0-0.2); Basophils % 0.6 %; Eosinophils # 0.1 K/mcL (0.0-0.6); Eosinophils % 1.2 %; Hematocrit 41.4 % (35.3-44.9); Hemoglobin 13.4 g/dL (11.5-15.4); Immature Granulocytes % 0.3 % (0-4); Lymphocytes # 3.2 K/mcL (0.6-4.6); Lymphocytes % 31.5 %; Mean Corpuscular HGB Conc 32.4 g/dL (31.6-35.5); Mean Corpuscular Hemoglobin 26.5 pg (28.0-33.3); Mean Platelet Volume 9.1 fL (9.4-12.4); Monocytes # 0.8 K/mcL (0.0-1.3); Monocytes % 7.4 %; Neutrophils # 6.1 K/mcL (1.6-8.9); Platelet Count 267 K/mcL (140-400); Red Blood Count 5.05 M/mcL (3.82-4.97); White Blood Count 10.3 K/mcL (4.3-11.1)
[2021-09-30 09:48] LABS: Alanine Aminotransferase 14 Units/L (7-52); Albumin 4.5 g/dL (3.5-5.7); Albumin/Globulin Ratio 1.7 (1.1-2.2); Alkaline Phosphatase 65 Units/L (34-104); Aspartate Amino Transferase 36 Units/L (13-39); BUN/Creatinine Ratio 16 (6-26); Bilirubin,Total 1.2 mg/dL (0.3-1.0); Blood Urea Nitrogen 9 mg/dL (8-23); Calcium 9.7 mg/dL (8.6-10.3); Carbon Dioxide 27 mEq/L (23-29); Chloride 99 mEq/L (98-107); Globulin 2.7 g/dL (2.4-3.5); Glucose 103 mg/dL (70-105); Magnesium 1.9 mg/dL (1.6-2.6); Osmolality,Calculated 285 (280-300); Phosphorous 3.2 mg/dL (2.7-4.5); Potassium 3.2 mEq/L (3.5-5.1); Sodium 138 mEq/L (136-145); Total Protein 7.2 g/dL (6.4-8.9); eGFR For African Americans > 60 (> 60); eGFR For Non-African Americans > 60 (> 60)
[2021-09-30] MEDS ORDERED: Ipratropium/Albuterol Neb 3 ML IH PRN (09:58)
[2021-09-30] MEDS: *HR* Heparin 5,000 UNIT/ML VIAL IVP PRN ×2 (11:48→19:51)
[2021-09-30 11:49] LABS: Estimated Average Glucose 114 mg/dl; Hemoglobin A1C 5.6 %
[2021-09-30 12:19] LABS: BUN/Creatinine Ratio 15 (6-26); Blood Urea Nitrogen 9 mg/dL (8-23); Calcium 9.9 mg/dL (8.6-10.3); Carbon Dioxide 29 mEq/L (23-29); Chloride 100 mEq/L (98-107); Chol/HDL Ratio 4.9 (0-4.9); Cholesterol 167 mg/dL (< 200); Glucose 97 mg/dL (70-105); HDL Cholesterol 34 mg/dL (40-59); LDL Cholesterol,Calculated 90 mg/dL (< 100); Osmolality,Calculated 289 (280-300); Potassium 3.3 mEq/L (3.5-5.1); Sodium 140 mEq/L (136-145); Triglycerides 215 mg/dL (< 150); Troponin I 0.22 ng/mL (< 0.04); eGFR For African Americans > 60 (> 60); eGFR For Non-African Americans > 60 (> 60)
[2021-09-30] MEDS: Isosorbide MONOnitrate (24 HR) 30 MG TAB.ER.24H PO SCH (13:37)
[2021-09-30] MEDS ORDERED: *HR* Labetalol 20 MG/4 ML SYRINGE IVP PRN (17:58)
[2021-09-30] MEDS: cefTRIAXone 1,000 MG in 0.9 % Sodium Chloride 10 ML IVP SCH (19:50)
[2021-09-30] MEDS: Metoprolol XL (24 HR) Succ 50 MG TAB.ER.24H PO SCH (19:51)
[2021-09-30] MEDS ORDERED: traZODone 50 MG TABLET PO ONE (22:47)
[2021-10-01 00:55] LABS: Basophils # 0.1 K/mcL (0.0-0.2); Basophils % 0.8 %; Eosinophils # 0.2 K/mcL (0.0-0.6); Eosinophils % 2.1 %; Hematocrit 37.5 % (35.3-44.9); Hemoglobin 11.9 g/dL (11.5-15.4); Immature Granulocytes % 0.1 % (0-4); Lymphocytes # 1.8 K/mcL (0.6-4.6); Lymphocytes % 25.8 %; Mean Corpuscular HGB Conc 31.7 g/dL (31.6-35.5); Mean Corpuscular Volume 82.1 fL (83.0-100.0); Mean Platelet Volume 9.1 fL (9.4-12.4); Monocytes # 0.7 K/mcL (0.0-1.3); Monocytes % 9.7 %; Neutrophils # 4.4 K/mcL (1.6-8.9); Platelet Count 214 K/mcL (140-400); Red Blood Count 4.57 M/mcL (3.82-4.97); Segmented Neutrophils % 61.5 %; White Blood Count 7.1 K/mcL (4.3-11.1)
[2021-10-01 01:14] LABS: BUN/Creatinine Ratio 16 (6-26); Blood Urea Nitrogen 9 mg/dL (8-23); Calcium 9.2 mg/dL (8.6-10.3); Carbon Dioxide 27 mEq/L (23-29); Chloride 101 mEq/L (98-107); Glucose 121 mg/dL (70-105); Osmolality,Calculated 284 (280-300); Potassium 3.2 mEq/L (3.5-5.1); Sodium 137 mEq/L (136-145); eGFR For African Americans > 60 (> 60); eGFR For Non-African Americans > 60 (> 60)
[2021-10-01] MEDS: Heparin 25,000UNIT/250ML 1/2NS 25,000 UNIT/250 ML IV.SOLN IVC SCH (02:28)
[2021-10-01] MEDS ORDERED: clonazePAM 1 MG TABLET PO PRN (08:08)
[2021-10-01] MEDS ORDERED: Venlafaxine XR (24 HR) 75 MG CAP.ER.24H PO SCH (09:00)
[2021-10-01] MEDS ORDERED: Venlafaxine XR (24 HR) 150 MG CAP.ER.24H PO SCH (09:00)
[2021-10-01] MEDS ORDERED: lisinopriL 10 MG TABLET PO SCH (09:00)
[2021-10-01] MEDS ORDERED: Aspirin 81 MG TAB.CHEW PO SCH (09:00)
[2021-10-01] MEDS ORDERED: Haloperidol Lactate 5 MG/ML VIAL IM ONE (09:07)
[2021-10-01] MEDS ORDERED: *HR* LORazepam 2 MG/ML VIAL IVP ONE ×2 (09:15→09:49)
[2021-10-01] MEDS: Metoprolol XL (24 HR) Succ 50 MG TAB.ER.24H PO SCH ×2 (09:37→20:01)
[2021-10-01] MEDS: Isosorbide MONOnitrate (24 HR) 30 MG TAB.ER.24H PO SCH (09:37)
[2021-10-01 15:02] VITALS: PULSE 90; TEMP 98.1; O2SAT 91
[2021-10-01] MEDS ORDERED: *HR* Heparin 5,000 UNIT/ML VIAL SQ SCH (18:00)
[2021-10-01] MEDS: cefTRIAXone 1,000 MG in 0.9 % Sodium Chloride 10 ML IVP SCH (20:01)
[2021-10-01 20:18] VITALS: BP 126/73
[2021-10-01] MEDS ORDERED: QUEtiapine Fumarate 100 MG TABLET PO SCH (21:00)
== END 2021-10-01 22:35 | disposition other institution (70) ==
LOC: 3BNU 20:47 → EMEROOARM 20:47 → SUATTDRO 23:03 → 3BNU 09-30
PROVIDERS: ADMIT Family Medicine; ATTEND Internal Medicine